=== PATIENT | male | born 1970 ===

== ENCOUNTER 2021-10-19 10:51 | Outpatient (CLI) | payer OTHER ==
[2021-10-19 12:05] VITALS: BP 126/87
--- NOTE | 2021-10-19 12:05 | SLEEP CARE CONSULTATION ---
Information from patient questionnaire entered by Clay Valerio MA. I have reviewed and concur with the information entered by Clay Valerio MA. This document represents the service I personally performed and the decisions made by , Kanika Gomez ARNP. History of Present Illness Service Date and Time: 10/19/2021 1051 Reason for Visit: New patient (ONSET 08/2012, ON CPAP,), sleep apnea on CPAP therapy Chief Complaint: reports: Unrefreshed sleep (better than before using CPAP), Fatigue (depends), Other (needs supplies) Date of Onset: 13 YEARS; CPAP USER Usual bedtime: 2200 Time it takes to fall asleep: 10 TO 20 MINUTES Snores at night: Yes Observed to quit breathing while asleep: Yes Sleeps alone due to snoring: No Number of times waking at night: 21 PER HOUR PER HOME STUDY Reasons for waking at night: reports: Snoring, Gasping for air Toss, Turn, or Twitch while sleeping: Yes Recalls having dreams: No Feels refreshed in the morning: No Morning headache: No Sleepy or fatigued during the day: Yes Ever fallen asleep while driving: No Takes day naps: No Dreams during day naps: No Prior sleep studies: Yes Year and Where: [id number] [facility] Additional HPI information: SONY GORE was previously diagnosed to have unknown severity, AHI unknown, sleep apnea-hypopnea syndrome and comes in today to establish care for CPAP therapy. - Parasomnia Symptoms Ever been unable to move upon waking from sleep: No Walks in sleep: No Talks in sleep: No Ever acted out dreams in sleep: No Ever felt weak in the knees when startled or emotional: No Bothered by creepy, crawly, restless sensations in legs: No Problems with memory or concentration: Yes CPAP Compliance Data - Data Reviewed with Patient Average duration of nightly device use: 6 hours Compliance rate %: 12 (180 days (50% last 30 days)) Current pressure setting (cmH2O): 5-8 Average residual AHI: 1.1 Compliance data discussion: He has not been able to get supplies, except for getting some online. He uses a full face mask, [employer]. He has an S9 [employer]et that he got in 2013-14. Subjective Patient concerns: reports: dry mouth, nose, throat (occasionally). denies: aerophagia, mask discomfort, air blowing in eyes, mask leak noise, condensation in mask/hose, nasal congestion, epistaxis Observed to snore while using device: No Current pressure setting perceived as: comfortable On therapy, patient: reports: sleeping better, awakening more refreshed, being more awake and alert during the day, more rested overall. denies: drowsiness while driving Initial [place] Sleepiness Scale score: 11 (2021) Past Medical History Past Medical History: reports: GERD, Other (PERF THE SINUS CAVITY WHEN HAVING A TOOTH REMOVED FOR A BRIDGE. 03/2020 EST.; lower back pain) Social History The patient's occupation is a RE. Patient is and lives in [place]. Have you smoked in the past 12 months: No (TOBACCO chew ONLY) Alcohol use: Yes Alcohol amount and frequency: 1 X YEARLY Caffeine use: Yes Caffeine amount and frequency: 16-20 oz coffee DAILY Family History Family history of sleep disordered breathing: No Allergies and Home Medications Known drug allergies: No Drug allergies reviewed: Yes Home medication list reviewed: Yes Allergy and home medication list: OMEPRAZOLE 20 MG DULOXETINE 60 MG Review of Systems Weight gain over past 5 years: 10 Gastrointestinal: reports: heartburn Ear/Nose/Throat: reports: nasal congestion, sinus problems, dry mouth/throat, injury to nose, other (DEVIATED SEPTUM) Musculoskeletal: reports: back pain Physical Exam Vital signs obtained and entered by: Layla VALERIO CMA [facility] Blood Pressure: 126/87 (LEFT, 67 PULSE, RESP 18) Cuff size: wrist Heart Rate: 76 O2 Saturation: 96 (PAPER MASK) Height: 5 ft 11 in Weight: 220 lb Body Mass Index: 30.7 BMI Classification: Obese Heart: regular rate and rhythm Lungs: clear bilaterally Impression and Plan 1. Obstructive Sleep Apnea-Hypopnea Syndrome, unknown, with fair treatment compliance and good apnea control. On CPAP therapy, the patient has better sleep quality and is more rested overall. He does not have a copy of his sleep study with him today. We have requested a copy but have not yet received that from his last sleep provider. Patient states he is needing to get more supplies and would like to have a DME supplier and has been buying some supplies online. His machine is also over 5 years old. He is eligible for an upgrade of his CPAP. Patient states he started reusing his CPAP in the last several weeks and has n oted a big difference. His use has been spotty in the past. He intends to continue to use it nightly. We will continue to try to obtain a copy of his sleep study. He may also look at home for a copy to bring to us. Once we have this we can transfer him to a new DME company and update his device. Patient's apnea severity and rationale for treatment to reduce apnea, improve sleep quality and reduce cardiovascular and cerebrovascular events was reviewed. He voiced understanding and agreement with this plan of care. 2. Obesity, unspecified. Patient has gained weight. Currently patients BMI is 30.7. Obesity increases the risk of apnea, CPAP pressure requirements and overall health risks especially cardiovascular and diabetes. Thus patient is advised to lose weight. Weight loss can be done with reducing portion size, reducing refined foods and balancing content with vegetables, fruit and whole grain foods. In addition, patient encouraged to get regular exercise. * Continue auto CPAP pressure at 5-8 cmH2O * Obtain a copy of sleep study * Update machine * Update supplies as needed * Transfer to DME * Notify me if snoring with mask or feeling that the pressure is too much or too little * Attempt to lose weight * Call this office if any problems using CPAP * Return for follow up one month after obtaining new device, or sooner if concerns arise Counseling Topics: Weight loss health impact Visit Type: In Office Time Spent with Patient (minutes): 36 Provider Statement: I spent 100% of the Face to Face Visit with the patient with greater than 50% spent counseling the patient and coordination of care.
== END 2021-10-19 10:52 | disposition home or self-care (01) ==
LOC: SC 10:51
PROVIDERS: ATTEND Nurse Practitioner Family
DX: G47.33 Obstructive sleep apnea (adult) (pediatric) (principal); E66.9 Obesity, unspecified; Z68.30 Body mass index [BMI] 30.0-30.9, adult
CPT/HCPCS: 99203; 99212